=== PATIENT | female | born 1990 | race African-American/Black ===

== ENCOUNTER 2017-05-24 19:49 | Emergency (ER) | payer MEDICAID ==
[~2017-05-24] VITALS: Ht 162.6 cm; Wt 72.6 kg
[~2017-05-24 19:49] MED LIST: AZITHROMYCIN250 MG ORAL; CIPROFLOXACIN500 M2 ORAL; CYMBALTA20 MG ORAL; IBUPROFEN600 M1 PO; IBUPROFEN600 MG ORAL; KEFLEX500 MG ORAL; NKM; NORCO 5-325 TA1 EACH ORAL; ONDANSETRON ODT8 MG ORAL; TRAMADOL HCL50 MG ORAL; VICODIN 5-5001 EACH PO; ZYRTEC10 MG PO; [UNRECOGNIZED DRUG - OTHER] PO
--- NOTE | 2017-05-24 21:22 | Emergency Room Report ---
History of Present Illness General Chief Complaint: Lower Extremity Injury Source: Patient Present Illness HPI 26-year-old female, presents with right knee pain, states that she fell while snowboarding. Swollen knee. Able to walk but with a limp. Allergies: Coded Allergies: No Known Allergies (Unverified , 06/20/12) Patient History Past Medical History: see triage record Past Surgical History: none Pertinent Family History: none Last Menstrual Period: may 11 Now: No Reviewed Nursing Documentation: PMH: Agreed, PSxH: Agreed Nursing Documentation-PMH Hx Cardiac Problems: No - Anemia Hx Gastrointestinal Problems: Yes - Fibroid Hx Neurological Problems: Yes - MIGRAINES Review of Systems All Other Systems: negative except mentioned in HPI Physical Exam Vital Signs Date Time Temp Pulse Resp B/P (MAP) Pulse Ox O2 Delivery O2 Flow Rate FiO2 05/24/17 20:02 98.4 84 18 131/77 98 Room Air 98.4 Sp02 EP Interpretation: reviewed, normal General Appearance: normal inspection, well appearing, no apparent distress, alert, GCS 15, non-toxic Head: normocephalic, atraumatic Eyes: bilateral eye normal inspection, bilateral eye PERRL, bilateral eye EOMI ENT: normal ENT inspection, normal pharynx, normal voice, moist mucus membranes Neck: normal inspection, full range of motion, supple Respiratory: normal inspection, lungs clear, normal breath sounds, no respiratory distress, no retraction, no wheezing, speaking full sentences, chest symmetrical Cardiovascular #1: normal inspection, regular rate, rhythm, normal capillary refill Cardiovascular #2: 2+ radial (R), 2+ radial (L) Gastrointestinal: normal inspection, non tender, soft, non-distended, no guarding Musculoskeletal: other - Right knee tender palpation medial aspect, effusion noted, limited range of motion secondary to pain Neurologic: normal inspection, alert, oriented x3, responsive, motor strength/ tone normal, sensory intact, normal gait, speech normal Psychiatric: normal inspection, judgement/insight normal, memory normal Skin: normal inspection, normal color, no rash, warm/dry, well hydrated, normal turgor Procedures Splinting Splinting : Consent: Verbal Location: r knee Pre-Made Type: knee immobilizer Pre-Proc Neuro Vasc Exam: normal Post-Proc Neuro Vasc Exam: normal Patient Tolerated: Well Complications: None Medical Decision Making Diagnostic Impression: Primary Impression: Swollen R knee ER Course 26-year-old female with right knee pain DDX: Sprain/strain vs. fracture Ligamentous injury Plan: Pain control with motrin XR ER course: Patient reports improvement of pain with motrin. XR reveals soft tissue swelling without fracture Patient told that she may need outpatient MRI if she continues to have severe pain. Discharge home with knee immobilizer and crutches Disposition: Patient is to be discharged home Patient instructed to keep splint on at all times, and to follow up with orthopedic surgery in 1 week. Patient educated to rest, ice, and elevate extremity and to avoid vigorous activity. Strict precautions discussed with patient on when to return to the emergency room including increased redness or swelling joints, increased pain/swelling of extremity, fever or chills, which could indicate severe illness. Patient is to follow up with their primary care doctor within 5 days. Patient also instructed to follow up with an orthopedic doctor if continuing to have mild/moderate pain as he may need further outpatient imaging. Patient agrees with plan. Please note that this Emergency Department Report was dictated using [employer]performance manager technology software, occasionally this can lead to erroneous entry secondary to interpretation by the dictation equipment. Xray ordered: Right knee 3 view Indication: Pain EP Interpretation: Yes Interpretation: No dislocation, no soft tissue swelling, no fractures Impression: No acute disease Electronically signed by Darlene Khan MD Last Vital Signs Date Time Temp Pulse Resp B/P (MAP) Pulse Ox O2 Delivery O2 Flow Rate FiO2 05/24/17 20:59 98.4 05/24/17 20:02 84 18 131/77 98 Room Air Disposition: HOME, SELF-CARE Condition: Improved Patient Instructions: Knee Pain, [id number] Additional Instructions: PLEASE SEE AN ORTHOPEDIC DOCTOR IN 1 WEEK IF STILL HAVE PAIN Darlene Khan M.D. May 24, 2017 21:22
[2017-05-24 21:40] VITALS: BP 127/77
--- NOTE | 2017-05-25 10:57 | Diagnostic Imaging Report ---
Indications: Reason For Exam: PAIN Technique: Three views of the knee Comparison: None Findings: No acute fractures. No dislocations. There is minimal patella malik. Joint spaces are preserved. No radiopaque foreign body. Normal mineralization. Impression: No acute process
== END 2017-05-24 21:40 | disposition home or self-care (01) ==
LOC: EMR 20:15
DX: M79.89 Other specified soft tissue disorders (principal); M25.561 Pain in right knee; V00.311A Fall from snowboard, initial encounter; Y93.23 Activity, snow (alpine) (downhill) skiing, snowboarding, sledding, tobogganing and snow tubing; Y92.9 Unspecified place or not applicable
CPT/HCPCS: 99283

== ENCOUNTER 2017-07-31 09:17 | Emergency (ER) | payer MEDICAID ==
[~2017-07-31] VITALS: Ht 162.6 cm; Wt 72.6 kg
[2017-07-31] MEDS ORDERED: XANAX2 MG ORAL (09:27)
[2017-07-31] MEDS ORDERED: XULANE PATCH1 EACH TD (09:27)
[2017-07-31] MEDS ORDERED: VALTREX500 MG ORAL (09:27)
[2017-07-31 09:38] VITALS: BP 125/87
--- NOTE | 2017-07-31 09:39 | Emergency Room Report ---
History of Present Illness General Chief Complaint: General Complaint Source: Patient Present Illness HPI 26yo F with a History of anxiety complains of a syncopal episode today as well as constant crampy lower abdominal pain that also started this morning She reports she felt lightheaded in her car and so pulled over and then feels like she passed out for a few seconds She denies bowel or bladder incontinence, tongue biting, nausea vomiting, diarrhea, urinary symptoms, leg swelling or leg pain, chest pain Allergies: Coded Allergies: Blueberry (Verified Allergy, Unknown, 07/31/17) STRAWBERRY (Verified Allergy, Unknown, 07/31/17) Patient History Past Medical History: see triage record Last Menstrual Period: 07/17/17 Reviewed Nursing Documentation: PMH: Agreed; PSxH: Agreed Nursing Documentation-PMH Hx Cardiac Problems: No - Anemia Hx Gastrointestinal Problems: Yes - Fibroid Hx Neurological Problems: Yes - MIGRAINES Review of Systems All Other Systems: negative except mentioned in HPI Physical Exam Vital Signs Date Time Temp Pulse Resp B/P (MAP) Pulse Ox O2 Delivery O2 Flow Rate FiO2 07/31/17 09:22 99.2 75 18 136/83 97 Room Air 99.1 Sp02 EP Interpretation: reviewed, normal General Appearance: no apparent distress, alert, non-toxic Head: normocephalic Eyes: bilateral eye normal inspection, bilateral eye PERRL, bilateral eye EOMI ENT: normal ENT inspection, hearing grossly normal, normal pharynx, no angioedema, normal voice, moist mucus membranes Neck: normal inspection, full range of motion, supple, supple/symm/no masses Respiratory: chest non-tender, lungs clear, normal breath sounds, chest symmetrical, palpation of chest normal Cardiovascular #1: normal peripheral pulses, regular rate, rhythm Cardiovascular #2: 2+ radial (R), 2+ radial (L) Gastrointestinal: normal inspection, non tender, soft, no mass, no guarding, no rebound Rectal: deferred Genitourinary: normal inspection, no CVA tenderness Musculoskeletal: back normal, gait/station normal, normal range of motion, non- tender, no calf tenderness Neurologic: alert, responsive, hand stitcher III-XII nml as tested, motor strength/tone normal, sensory intact, speech normal Psychiatric: judgement/insight normal, memory normal, mood/affect normal, no suicidal/homicidal ideation Skin: normal color, no rash, warm/dry, normal turgor Lymphatic: no adenopathy Medical Decision Making Diagnostic Impression: Primary Impression: Syncope Additional Impression: Fibroid ER Course Patient well-appearing, mild LLQ pain, nontender workup unremarkable US with fibroids Lapse of Consciousness form completed Will dc home with PMD f/u EKG Diagnostic Results EKG Time: 09:36 EP Interpretation: no st-t changes, no S1Q3T3 Rate: normal Rhythm: NSR ST Segments: no acute changes Rhythm Strip Diag. Results Rhythm Strip Time: 09:38 EP Interpretation: yes Rate: 68 Rhythm: NSR, no PVC's, no ectopy Chest X-Ray Diagnostic Results Chest X-Ray Diagnostic Results : Chest X-Ray Ordered: Yes # of Views/Limited/Complete: 1 View Indication: Other - syncope EP Interpretation: Yes Interpretation: no consolidation, no effusion, no pneumothorax, no acute cardiopulmonary disease Impression: No acute disease Electronically Signed by: Salvador Wheeler MD CT/MRI/US Diagnostic Results CT/MRI/US Diagnostic Results : Imaging Test Ordered: US pelvic Last Vital Signs Date Time Temp Pulse Resp B/P (MAP) Pulse Ox O2 Delivery O2 Flow Rate FiO2 07/31/17 09:22 99.2 75 18 136/83 97 Room Air 99.1 Disposition: HOME, SELF-CARE Condition: Stable SALVADOR WHEELER M.D Jul 31, 2017 09:39
[2017-07-31 09:56] LABS: APPEARANCE,URINE TURBID; BILIRUBIN, URINE NEGATIVE (NEGATIVE); COLOR,URINE PALE YELLOW; GLUCOSE, URINE (UA) NEGATIVE (NEGATIVE); KETONES,URINE NEGATIVE (NEGATIVE); LEUKOCYTE ESTERASE ,URINE 1+ (NEGATIVE); NITRITE,URINE NEGATIVE (NEGATIVE); PH,URINE 5 (4.5-8.0); PROTEIN,URINE NEGATIVE (NEGATIVE); UROBILINOGEN,URINE NORMAL MG/DL (0.0-1.0)
[2017-07-31] MEDS ORDERED: LORazepam 1mg tab ORAL ONE (10:00)
[2017-07-31 10:13] LABS: BASOPHILS % (AUTO) 0.8 % (0.0-2.0); EOSINOPHILS % (AUTO) 1.5 % (0.0-3.0); HEMOGLOBIN 11.8 G/DL (12.0-16.0); LYMPHOCYTES % (AUTO) 28.4 % (20.0-45.0); MEAN CORPUSCULAR VOLUME 82 FL (80-99); MONOCYTES % (AUTO) 6.1 % (1.0-10.0); NEUTROPHILS % (AUTO) 63.3 % (45.0-75.0); PLATELET COUNT 305 K/UL (150-450); RED BLOOD COUNT 4.39 M/UL (4.20-5.40); RED CELL DISTRIBUTION WIDTH 16.3 % (11.6-14.8); WHITE BLOOD COUNT 6.6 K/UL (4.8-10.8)
[2017-07-31 10:29] LABS: ANION GAP 9 mmol/L (5-15); BLOOD UREA NITROGEN 8 mg/dL (7-18); CALCIUM 8.8 MG/DL (8.5-10.1); CARBON DIOXIDE 22 MMOL/L (21-32); CHLORIDE 105 MMOL/L (98-107); CREATININE 0.7 MG/DL (0.55-1.30); POTASSIUM 3.8 MMOL/L (3.5-5.1); SODIUM 136 MMOL/L (136-145)
[2017-07-31 10:34] LABS: ALANINE AMINOTRANSFERASE 19 U/L (12-78); ALBUMIN 3.6 G/DL (3.4-5.0); ALBUMIN/GLOBULIN RATIO 0.9 (1.0-2.7); ALKALINE PHOSPHATASE 66 U/L (46-116); ASPARTATE AMINO TRANSFERASE 17 U/L (15-37); BILIRUBIN,TOTAL 0.3 MG/DL (0.2-1.0)
--- NOTE | 2017-07-31 10:43 | Diagnostic Imaging Report ---
. Indication: Cough Technique: One view of the chest Comparison: 06/23/2014 Findings: Lungs and pleural spaces are clear. Heart size is normal. No significant change Impression: No acute process
[2017-07-31] MEDS ORDERED: IBUPROFEN600 MG ORAL (12:31)
[2017-07-31 12:48] VITALS: BP 125/72
[2017-07-31 12:49] VITALS: BP 125/72
--- NOTE | 2017-07-31 14:09 | Diagnostic Imaging Report ---
Indication: Pelvic pain, left-sided pain, negative test Technique: Transabdominal and transvaginal images Comparison: 10/25/2013 Findings: Uterus measures 9.2 cm length by 2.6 cm AP. Small uterine fibroids are demonstrated. One of these, in the anterior lower uterine segment, demonstrates a central anechoic cystic area. This was evident on previous studies but was solid. The left ovary measures 2.4 cm in length. The right ovary measures 3 cm in length. Normal blood flow seen in both ovaries. No adnexal mass demonstrated. No free cul-de-sac fluid. Impression: Multiple uterine fibroids. One of these demonstrate central anechoic area. This probably just represents cystic degeneration, but this is somewhat unusual in a young patient. Consider further evaluation with MRI Other smaller uterine fibroid is also demonstrated Negative for adnexal mass. No ovarian enlargement to suggest torsion Findings discussed by phone with Dr. Cabello in the emergency room at the time of interpretation
--- NOTE | 2017-08-01 15:14 | Cardiology Report ---
APPROVED REPORT EKG Measurement Heart [id number] Sinus rhythm with marked sinus arrhythmia Otherwise normal ECG
== END 2017-07-31 12:49 | disposition home or self-care (01) ==
LOC: EMR 10:09
DX: R55 Syncope and collapse (principal); D25.9 Leiomyoma of uterus, unspecified; R05 Cough; Z91.018 Allergy to other foods
CPT/HCPCS: 36415; 71045; 76830; 76856; 80053; 81001; 84484; 84702; 85025; 93005; 99284

== ENCOUNTER 2017-08-14 08:47 | Emergency (ER) | payer BC, MEDICAID ==
[~2017-08-14] VITALS: Ht 162.6 cm; Wt 72.6 kg
[~2017-08-14 08:47] MED LIST changes: +VALTREX500 MG ORAL; +XANAX2 MG ORAL; +XULANE PATCH1 EACH TD
[2017-08-14 09:08] VITALS: BP 125/83
[2017-08-14] MEDS ORDERED: Ketorolac 60mg Inj IM ONE (09:30)
--- NOTE | 2017-08-14 09:43 | Emergency Room Report ---
History of Present Illness General Chief Complaint: Nausea, Vomiting, and Diarrhea Source: Patient Present Illness HPI Patient presents with complaints of abdominal cramping vomiting and diarrhea Patient reports that she had lettuce last night with salad Denies any fevers denies any chest pain or shortness of breath denies any dysuria or frequency patient also reports that she was diagnosed with uterine fibroids And has a follow-up with gynecology on She was not sure if the pain was from the fibroids or the diarrhea and vomiting Denies any focal weakness Allergies: Coded Allergies: Blueberry (Verified Allergy, Unknown, 07/31/17) STRAWBERRY (Verified Allergy, Unknown, 07/31/17) Patient History Past Medical History: see triage record Pertinent Family History: none Last Menstrual Period: 08/08/17 Reviewed Nursing Documentation: PMH: Agreed; PSxH: Agreed Nursing Documentation-PMH Hx Cardiac Problems: No - Anemia Hx Gastrointestinal Problems: Yes - Fibroid Hx Neurological Problems: Yes - MIGRAINES Review of Systems All Other Systems: negative except mentioned in HPI Physical Exam Vital Signs Date Time Temp Pulse Resp B/P (MAP) Pulse Ox O2 Delivery O2 Flow Rate FiO2 08/14/17 08:53 97.6 79 18 122/82 97 Room Air 97.5 Sp02 EP Interpretation: reviewed, normal General Appearance: well appearing, no apparent distress Head: normocephalic, atraumatic Eyes: bilateral eye PERRL, bilateral eye EOMI ENT: hearing grossly normal, normal pharynx, TMs + canals normal, uvula midline Neck: full range of motion, supple, no meningismus, no bony tend Respiratory: lungs clear, normal breath sounds, no rhonchi, no respiratory distress, no retraction, no accessory muscle use Cardiovascular #1: normal peripheral pulses, regular rate, rhythm, no edema, no gallop, no JVD, no murmur Gastrointestinal: normal bowel sounds, non tender - On palpation however subjectively points diffusely throughout the abdomen, soft, no mass, no organomegaly, non-distended, no guarding, no hernia, no pulsatile mass, no rebound Genitourinary: no CVA tenderness Musculoskeletal: normal inspection Neurologic: oriented x3, responsive, bottom stop attacher III-XII nml as tested, motor strength/ tone normal, sensory intact Psychiatric: mood/affect normal Skin: normal color, no rash, warm/dry, palpation normal Lymphatic: normal inspection, no adenopathy Medical Decision Making Diagnostic Impression: Primary Impression: Nausea, vomiting, and diarrhea Additional Impression: Abdominal pain ER Course With the patient's history and examination, multiple differentials considered, including but not limited to , ectopic , ovarian torsion, gastritis, cholecystitis, pancreatitis, appendicitis Patient had fairly extensive workup recently Further testing along with tests are not performed because of that reason Patient remains hemodynamically stable Was provided with pain medication and antinausea medicine Patient has potential of fibroid pain versus gastroenteritis At this time appropriate for initial conservative outpatient trial Last Vital Signs Date Time Temp Pulse Resp B/P (MAP) Pulse Ox O2 Delivery O2 Flow Rate FiO2 08/14/17 09:39 97.6 08/14/17 09:08 84 14 125/83 100 Room Air Status: improved Disposition: HOME, SELF-CARE Condition: Improved Scripts Acetaminophen With Codeine (T#3) (TYLENOL #3 TAB*) Y Tab 1 TAB ORAL Q8H PRN for For Pain, #10 TAB Prov: Teri Ochoa DO 08/14/17 Ondansetron (Zofran) 4 Mg Tablet 4 MG ORAL Q6H PRN for Nausea & Vomiting, #12 TAB Prov: Teri Ochoa DO 08/14/17 Additional Instructions: Patient is provided with the discharge instructions notified to follow up with primary doctor in the next 2-3 days otherwise return to the er with any worsening symptoms. Please note that this report is being documented using [employer] technology. This can lead to erroneous entry secondary to incorrect interpretation by the dictating instrument. Teri Ochoa DO August 14, 2017 09:43
[2017-08-14] MEDS ORDERED: ACETAMINOPHEN-1 EAC1 ORAL (09:45)
[2017-08-14] MEDS ORDERED: ZOFRAN4 M1 ORAL (09:45)
[2017-08-14 09:59] VITALS: BP 116/85
== END 2017-08-14 09:59 | disposition home or self-care (01) ==
LOC: EMR 09:43
DX: R11.2 Nausea with vomiting, unspecified (principal); R19.7 Diarrhea, unspecified; R10.9 Unspecified abdominal pain; Z91.018 Allergy to other foods; Z87.42 Personal history of other diseases of the female genital tract; Z86.69 Personal history of other diseases of the nervous system and sense organs
CPT/HCPCS: 96372; 99284

== ENCOUNTER 2017-08-20 02:32 | Emergency (ER) | payer MEDICAID ==
[~2017-08-20] VITALS: Ht 162.6 cm; Wt 72.6 kg
[~2017-08-20 02:32] MED LIST changes: +ACETAMINOPHEN-1 EAC1 ORAL; +ZOFRAN4 M1 ORAL
[2017-08-20 02:50] VITALS: BP 124/69
--- NOTE | 2017-08-20 02:53 | Emergency Room Report ---
History of Present Illness General Chief Complaint: Abdominal Pain Source: Patient Present Illness HPI Is a 26-year-old female with history of fibroid. She presents with chief complaint of headache and vomiting. Onset tonight. She was here last week for abdominal pain with vomiting and diarrhea. She's been here several times for the same. Labs and CT scan unremarkable. She never had any GI workup. She also history of migraine. She presents with headache she described as throbbing nature. Has vomiting. Pain is 9 out of 10. Notice of specks of blood with vomiting. Denies any other symptoms. No focal deficit. No slurred speech. No fever. Allergies: Coded Allergies: Blueberry (Verified Allergy, Unknown, Rash, 08/20/17) TOMATO (Verified Allergy, Unknown, Rash, 08/20/17) Patient History Past Medical History: see triage record, old chart reviewed Past Surgical History: other Pertinent Family History: none Social History: Denies: smoking Last Menstrual Period: 08/07/17 Now: No Immunizations: other Reviewed Nursing Documentation: PMH: Agreed; PSxH: Agreed Nursing Documentation-PMH Hx Cardiac Problems: No - Anemia Hx Gastrointestinal Problems: Yes - Fibroid Hx Neurological Problems: Yes - MIGRAINES Review of Systems Eye: Denies: eye pain, blurred vision ENT: Denies: ear pain, nose congestion, throat swelling Respiratory: Denies: cough, shortness of breath Cardiovascular: Denies: chest pain, palpitations Gastrointestinal: Reports: abdominal pain, nausea, vomiting; Denies: diarrhea Musculoskeletal: Denies: back pain, joint pain Skin: Denies: rash Neurological: Reports: headache; Denies: numbness Endocrine: Denies: increased thirst, increased urine Hematologic/Lymphatic: Denies: easy bruising All Other Systems: negative except mentioned in HPI Physical Exam Vital Signs Date Time Temp Pulse Resp B/P (MAP) Pulse Ox O2 Delivery O2 Flow Rate FiO2 08/20/17 02:36 98.2 65 16 142/90 98 Room Air 98.2 vitals normal Sp02 EP Interpretation: reviewed, normal General Appearance: well appearing, no apparent distress, alert Head: normocephalic, atraumatic Eyes: bilateral eye PERRL, bilateral eye EOMI ENT: hearing grossly normal, normal pharynx Neck: full range of motion, supple, no meningismus Respiratory: chest non-tender, lungs clear, normal breath sounds Cardiovascular #1: regular rate, rhythm, no murmur Gastrointestinal: normal bowel sounds, non tender, no mass, no organomegaly, no bruit, non-distended Musculoskeletal: back normal, gait/station normal, normal range of motion Psychiatric: mood/affect normal Skin: warm/dry Medical Decision Making Diagnostic Impression: Primary Impression: Headache Qualified Codes: R51 - Headache ER Course Patient presents with headache. No evidence of bleed, meningitis, or neoplastic process. She felt better now. We'll discharge home with reassurance. Last Vital Signs Date Time Temp Pulse Resp B/P (MAP) Pulse Ox O2 Delivery O2 Flow Rate FiO2 08/20/17 02:36 98.2 65 16 142/90 98 Room Air 98.2 Status: improved Disposition: HOME, SELF-CARE Condition: Improved Scripts Amitriptyline HCl (ELAVIL*) 25 Mg Tablet 25 MG ORAL BEDTIME, #30 TAB Prov: TRESA SHARPE M.D. 08/20/17 Additional Instructions: Follow-up with your doctor in 7 days. Return if symptom worsen. TRESA SHARPE M.D. August 20, 2017 02:53
[2017-08-20] MEDS ORDERED: Promethazine HCl 25 MG in NS 55 ML IVPB ONE (03:00)
[2017-08-20] MEDS ORDERED: Ketorolac 30mg Inj IV ONE (03:00)
[2017-08-20 03:45] VITALS: BP 126/68
[2017-08-20 03:56] VITALS: BP 126/68
[2017-08-20] MEDS ORDERED: AMITRIPTYLINE25 MG ORAL (04:01)
== END 2017-08-20 03:56 | disposition home or self-care (01) ==
LOC: EMR 02:56
DX: R51 Headache (principal); Z91.018 Allergy to other foods
CPT/HCPCS: 96374; 96375; 99283; J1885; J2550

== ENCOUNTER 2017-10-06 10:33 | Emergency (ER) | payer MEDICAID ==
[~2017-10-06] VITALS: Ht 162.6 cm; Wt 71.7 kg
[~2017-10-06 10:33] MED LIST changes: +AMITRIPTYLINE25 MG ORAL
[2017-10-06] MEDS ORDERED: HYDROXYZINE PA100 MG ORAL (10:48)
[2017-10-06] MEDS ORDERED: VALACYCLOVIR500 MG ORAL (10:48)
[2017-10-06] MEDS ORDERED: VISTARIL50 MG ORAL (10:49)
[2017-10-06] MEDS ORDERED: LORazepam Inj 2mg/ml 1ml IM ONE (11:15)
[2017-10-06 11:22] VITALS: BP 128/86
[2017-10-06 12:20] VITALS: BP 132/85
--- NOTE | 2017-10-06 13:43 | Emergency Room Report ---
History of Present Illness General Chief Complaint: General Complaint Source: Patient Present Illness HPI 26-year-old female presents to ED complaining of panic attack. Patient states that her panic attacks get very debilitating at times that she cannot function. Does not know why she is feeling so anxious at this time. States she quit her job last week. states she takes xanax. States that she takes a very high dose of Xanax. Does not believe it is helping at this time. Denies any suicidal or homicidal ideation. Denies hearing voices. Denies smoking or drug use. States that she gets her Xanax from her PMD. Does not have a psychiatrist here. No other aggravating relieving factors. Denies any other associated symptoms Allergies: Coded Allergies: Blueberry (Verified Allergy, Unknown, Rash, 08/20/17) TOMATO (Verified Allergy, Unknown, Rash, 08/20/17) Patient History Past Medical History: psych hx Past Surgical History: none Pertinent Family History: none Social History: Denies: smoking, alcohol use, drug use Last Menstrual Period: 10/06/2017 Now: No Immunizations: UTD Reviewed Nursing Documentation: PMH: Agreed; PSxH: Agreed Nursing Documentation-PMH Past Medical History: No History, Except For Hx Cardiac Problems: No - Anemia History Of Psychiatric Problem: Yes - Panic attack, depression Hx Neurological Problems: Yes Review of Systems All Other Systems: negative except mentioned in HPI Physical Exam Vital Signs Date Time Temp Pulse Resp B/P (MAP) Pulse Ox O2 Delivery O2 Flow Rate FiO2 10/06/17 10:40 97.9 91 16 128/86 96 Room Air 97.9 Sp02 EP Interpretation: reviewed, normal General Appearance: no apparent distress, alert, GCS 15, non-toxic Head: normocephalic, atraumatic Eyes: bilateral eye normal inspection, bilateral eye PERRL ENT: hearing grossly normal, normal pharynx, no angioedema, normal voice Neck: full range of motion, supple/symm/no masses Respiratory: chest non-tender, lungs clear, normal breath sounds, speaking full sentences Cardiovascular #1: regular rate, rhythm, no edema Cardiovascular #2: 2+ carotid (R), 2+ carotid (L), 2+ radial (R), 2+ radial (L) , 2+ dorsalis pedis (R), 2+ dorsalis pedis (L) Gastrointestinal: normal bowel sounds, non tender, soft, non-distended, no guarding, no rebound Rectal: deferred Genitourinary: normal inspection, no CVA tenderness Musculoskeletal: back normal, gait/station normal, normal range of motion, non- tender Neurologic: alert, oriented x3, responsive, motor strength/tone normal, sensory intact, speech normal Psychiatric: mood/affect normal, no suicidal/homicidal ideation, depressed affect, anxious Reflexes: 3+ bicep (R), 3+ bicep (L), 3+ tricep (R), 3+ tricep (L), 3+ knee (R) , 3+ knee (L) Skin: normal color, no rash, warm/dry, well hydrated Lymphatic: no adenopathy Medical Decision Making Diagnostic Impression: Primary Impression: Panic attack ER Course Hospital Course 26 yo F presents to ED c/o panic attack, anxiety Differential diagnoses include: psychosis, ETOH, anxiety Clinical course Patient placed on stretcher. on threat monitoring analyst. After initial history and physical exam reveals female in no acute distress. Patient is tearful and crying. However maintaining good eye contact. No signs of suicidal or homicidal ideation. Patient given Ativan here. On reassessment patient is feeling somewhat better but still's feels anxious I offered her additional round of Ativan but she declined. Is asking for referral for psychiatry. We'll provide her with outpatient clinic referral and psychiatry referral I. I feel this is a highly complex case requiring extensive working including EKG/Rhythm strip, Xray/CT/US, Blood/urine lab work, repeat exams while in ED, and administration of strong opiates/narcotics for pain control, admission to hospital or close patient follow up. Diagnosis - panic attack Stable and discharged to home. Followup with PMD/psychiatry. Return to ED if symptoms recur or worse Last Vital Signs Date Time Temp Pulse Resp B/P (MAP) Pulse Ox O2 Delivery O2 Flow Rate FiO2 10/06/17 12:20 98.0 85 18 132/85 97 Room Air 97.9 Status: improved Disposition: HOME, SELF-CARE Condition: Stable Referrals: Ligia Hobson M.D., Gadson John MD Patient Instructions: Panic Attacks, [id number] Krishna Mendez MD Oct 06, 2017 13:43
== END 2017-10-06 12:30 | disposition home or self-care (01) ==
LOC: EMR 11:08
DX: F41.0 Panic disorder [episodic paroxysmal anxiety] (principal); Z91.018 Allergy to other foods; F32.9 Major depressive disorder, single episode, unspecified; F41.9 Anxiety disorder, unspecified
CPT/HCPCS: 96372; 99283

== ENCOUNTER 2017-10-07 13:17 | Emergency (ER) | payer MEDICAID ==
[~2017-10-07] VITALS: Ht 162.6 cm; Wt 71.7 kg
[~2017-10-07 13:17] MED LIST changes: +HYDROXYZINE PA100 MG ORAL; +VALACYCLOVIR500 MG ORAL; +VISTARIL50 MG ORAL
[2017-10-07 13:35] VITALS: BP 128/84
--- NOTE | 2017-10-07 14:26 | Emergency Room Report ---
History of Present Illness General Chief Complaint: Behavioral Complaint Source: Patient, Medical Record Present Illness HPI 26-year-old female with significant past medical history of anxiety and depression, comes to the ED today complaining of suicidal ideation 1 day. Patient claims that she has no intention and living, tried taking 10 pills of 2 mg Xanax at home at 4 PM last night, without having any outcome. Patient was just here at the ED yesterday complaining of anxiety attack, was given an IM injection of Ativan, reports severe nausea. Patient denies homicidal ideation, changes in sleep, changes in mood, visual/auditory hallucinations, however, reports change of appetite. Patient abruptly stopped taking Cymbalta and amitriptyline 3 months ago on her own. Patient reports that she is thinking about taking more pills when she gets home within the next 72 hours. Patient's is currently followed up by a psychiatrist and her patient psychiatrist told her to come to the emergency room due to suicidal ideation. Patient claims to have an appointment with her psychiatrist this Sunday. Patient denies chest pain, shortness of breath, nausea/vomiting, either/chills, and any other associated symptoms due to intake of Xanax. Allergies: Coded Allergies: Blueberry (Verified Allergy, Unknown, Rash, 08/20/17) TOMATO (Verified Allergy, Unknown, Rash, 08/20/17) Patient History Past Medical History: see triage record Past Surgical History: none Pertinent Family History: none Last Menstrual Period: 10/01/17 Now: No Immunizations: UTD Reviewed Nursing Documentation: PMH: Agreed; PSxH: Agreed Nursing Documentation-PMH Past Medical History: No History, Except For Hx Cardiac Problems: No - Anemia Hx Neurological Problems: Yes Review of Systems All Other Systems: negative except mentioned in HPI Physical Exam Vital Signs Date Time Temp Pulse Resp B/P (MAP) Pulse Ox O2 Delivery O2 Flow Rate FiO2 10/07/17 13:21 98.4 99 18 128/84 95 Room Air 98.4 Sp02 EP Interpretation: reviewed, normal General Appearance: alert, GCS 15, non-toxic, moderate distress - tearful Head: normocephalic Eyes: bilateral eye normal inspection, bilateral eye PERRL ENT: normal ENT inspection, hearing grossly normal Neck: normal inspection, full range of motion, supple Respiratory: normal inspection, chest non-tender, lungs clear, normal breath sounds, no rhonchi, no respiratory distress, no retraction Cardiovascular #1: normal inspection, normal peripheral pulses, regular rate, rhythm, no edema Cardiovascular #2: 2+ radial (R), 2+ radial (L) Gastrointestinal: normal inspection, normal bowel sounds, non tender, soft, no mass Rectal: deferred Genitourinary: deferred Musculoskeletal: normal inspection, back normal, digits/nails normal Neurologic: alert, oriented x3 Psychiatric: judgement/insight normal, memory normal, anxious, other - tearful Suicide Risk Assessment: Suicidal Ideation: Yes Had intent to initiate attempt: Yes Pt's plan for suicide attempt: Yes Has means to complete attempt: Yes Skin: normal inspection, normal color, no rash Lymphatic: normal inspection, no adenopathy, axilla node tender (R) Medical Decision Making PA Attestation all patient's orders, diagnosis, treatment plan were reviewed and discussed by my supervising physician Dr. Cabello Diagnostic Impression: Primary Impression: Suicidal ideation Additional Impressions: Major depressive disorder Generalized anxiety disorder ER Course 26-year-old female with significant past medical history of anxiety and depression, comes to the ED today complaining of suicidal ideation 1 day. Patient claims that she has no intention and living, tried taking 10 pills of 2 mg Xanax at home at 4 PM last night, without having any outcome. Patient was just here at the ED yesterday complaining of anxiety attack, was given an IM injection of Ativan, reports severe nausea. Patient denies homicidal ideation, changes in sleep, changes in mood, visual/auditory hallucinations, however, reports change of appetite. Patient abruptly stopped taking Cymbalta and amitriptyline 3 months ago on her own. Patient reports that she is thinking about taking more pills when she gets home within the next 72 hours. Patient's is currently followed up by a psychiatrist and her patient psychiatrist told her to come to the emergency room due to suicidal ideation. Patient claims to have an appointment with her psychiatrist this Sunday. Patient denies chest pain, shortness of breath, nausea/vomiting, either/chills, and any other associated symptoms due to intake of Xanax. Ddx considered but are not limited to MDD with SI, generalized anxiety disorder Vital signs: are WNL, pt. is afebrile H&PE are most consistent with SI due to MDD ORDERS:Psych set( positive benzo and marijuana) ED INTERVENTIONS: medical clearance, pt on voluntary psych consult hold patient is medically cleared based on normal vital signs, normal EKG, and normal blood work. positive benzo and positive marinjuana. patient's agrees to voluntary consultation by psychotherapist positive benzo, and positic TLC Lab Results Impression positive benzo use and positive marijauna use. no toxicity EKG Diagnostic Results Rate: normal Rhythm: NSR ST Segments: no acute changes ASA given to the pt in ED: No Rhythm Strip Diag. Results EP Interpretation: yes Rhythm: NSR, no PVC's, no ectopy PA Scribe Text Suresh Valdez PARosalie Last Vital Signs Date Time Temp Pulse Resp B/P (MAP) Pulse Ox O2 Delivery O2 Flow Rate FiO2 10/07/17 13:35 98.4 84 18 128/84 95 Room Air 98.4 Disposition: PLACE IN OBSERVATION Condition: Stable Referrals: NON PHYSICIAN (PCP) Patient Instructions: Self-Destructive Behavior Suresh Randhawa Oct 07, 2017 14:26
[2017-10-07 14:43] LABS: BASOPHILS % (AUTO) 0.8 % (0.0-2.0); EOSINOPHILS % (AUTO) 3.5 % (0.0-3.0); HEMATOCRIT 43.7 % (37.0-47.0); HEMOGLOBIN 13.8 G/DL (12.0-16.0); LYMPHOCYTES % (AUTO) 39.3 % (20.0-45.0); MEAN CORPUSCULAR VOLUME 83 FL (80-99); MONOCYTES % (AUTO) 6.1 % (1.0-10.0); NEUTROPHILS % (AUTO) 50.3 % (45.0-75.0); PLATELET COUNT 272 K/UL (150-450); RED BLOOD COUNT 5.25 M/UL (4.20-5.40); RED CELL DISTRIBUTION WIDTH 15.6 % (11.6-14.8); WHITE BLOOD COUNT 6.6 K/UL (4.8-10.8)
[2017-10-07 14:43] LABS: ANION GAP 9 mmol/L (5-15); BLOOD UREA NITROGEN 8 mg/dL (7-18); CALCIUM 8.9 MG/DL (8.5-10.1); CARBON DIOXIDE 25 MMOL/L (21-32); CHLORIDE 104 MMOL/L (98-107); CREATININE 0.9 MG/DL (0.55-1.30); POTASSIUM 3.6 MMOL/L (3.5-5.1); SODIUM 138 MMOL/L (136-145)
[2017-10-07 14:47] LABS: ALANINE AMINOTRANSFERASE 17 U/L (12-78); ALBUMIN 3.9 G/DL (3.4-5.0); ALKALINE PHOSPHATASE 82 U/L (46-116); ASPARTATE AMINO TRANSFERASE 14 U/L (15-37); BILIRUBIN,TOTAL 0.4 MG/DL (0.2-1.0)
[2017-10-07 16:04] VITALS: BP 111/67
[2017-10-07 17:06] LABS: APPEARANCE,URINE TURBID; BILIRUBIN, URINE NEGATIVE (NEGATIVE); GLUCOSE, URINE (UA) NEGATIVE (NEGATIVE); KETONES,URINE NEGATIVE (NEGATIVE); LEUKOCYTE ESTERASE ,URINE 1+ (NEGATIVE); NITRITE,URINE NEGATIVE (NEGATIVE); PH,URINE 6 (4.5-8.0); PROTEIN,URINE 1+ (NEGATIVE); UROBILINOGEN,URINE NORMAL MG/DL (0.0-1.0)
[2017-10-07 17:09] LABS: COLOR,URINE YELLOW
[2017-10-07 17:52] VITALS: BP 107/61
[2017-10-07 19:55] VITALS: BP 107/61
== END 2017-10-07 19:55 ==
LOC: EMR 13:52
DX: R45.851 Suicidal ideations (principal); F32.9 Major depressive disorder, single episode, unspecified; F41.1 Generalized anxiety disorder
CPT/HCPCS: 36415; 80053; 80307; 80329; 81003; 81025; 85025; 93005; 99284